=== PATIENT | female | born 1970 | race Caucasian/White ===

== ENCOUNTER 2023-05-18 13:08 | Outpatient (CLI) | payer OTHER, SELFPAY | END 2023-05-18 13:09 | disposition home or self-care (01) | LOC: LKVREF 13:11 | PROVIDERS: PCP Emergency Medicine; Visit Provider Emergency Medicine | DX: Z00.00 Encounter for general adult medical examination without abnormal findings (principal); I10 Essential (primary) hypertension; Z13.1 Encounter for screening for diabetes mellitus | CPT/HCPCS: 80048 ==

== ENCOUNTER 2023-06-08 12:23 | Outpatient (CLI) | payer OTHER, SELFPAY ==
[2023-06-08 13:22] VITALS: BP 164/84; PULSE 113; RESP 18
--- NOTE | 2023-06-08 14:29 | P.STN_ITS ---
Stress Test Note Date Date Seen: 06/08/23 Date of test: 06/08/23 Providers Primary care provider: Kemi Campo Stress test physician: Antonia Orozco Stress Test Note Stress test ordered: Stress Echo Indication for test: Shortness of breath Stress test medicine: None Results discussion: Resting EKG: Sinus rhythm, 86 beats per minute. Resting blood pressure: 130/82 Stress test: Patient exercised on the treadmill following standard Jarad protocol occasional PVC was seen during exercise, no significant burden of PVCs. Patient exercised to 9 minutes 2 seconds, stopping due to achieving heart rate an maximizing exercise capacity. This was equivalent to 10.5 Mets. She had m aximal blood pressure during exercise of 170/74 given the rate pressure product of 30,600. No arrhythmia, no ischemic change noted. Patient experienced no concerning symptoms during the stress test. Echo images to couple this for a full formal diagnostic. Impression: Subjectively negative, objectively negative EKG portion of this stress test. Follow up suggested: Patient will be discharged to home, in stable condition. She will await the full report once the echo images are read. She does have a follow-up next week with her primary care provider.
== END 2023-06-08 12:24 | disposition home or self-care (01) ==
LOC: STRESS 12:24
PROVIDERS: PCP Emergency Medicine; Visit Provider Family Medicine
DX: R06.02 Shortness of breath (principal)
CPT/HCPCS: 93016; 93325; 93351

== ENCOUNTER 2023-06-15 09:50 | Outpatient (CLI) | payer OTHER, SELFPAY | END 2023-06-15 09:51 | disposition home or self-care (01) | PROVIDERS: PCP Emergency Medicine; Visit Provider Emergency Medicine | DX: Z00.00 Encounter for general adult medical examination without abnormal findings (principal); Z13.6 Encounter for screening for cardiovascular disorders; Z13.1 Encounter for screening for diabetes mellitus | CPT/HCPCS: 80061; 82947 ==

== ENCOUNTER 2023-06-22 10:41 | Outpatient (CLI) | payer OTHER, SELFPAY ==
--- NOTE | 2023-06-22 11:00 | CRLHL7_ITS ---
For Patients: As a result of the Century Cures Act, medical imaging exams and procedure reports are released immediately into your electronic medical record. You may view this report before your referring provider. If you have questions, please contact your health care provider. INDICATION: EXCESSIVE AND FREQUENT BLEEDING COMPARISON: none TECHNIQUE: 2D gonzalez scale and color Doppler images were acquired of the pelvis using a transabdominal and transvaginal approach. FINDINGS: Uterine echotexture is heterogeneous. There are 2 midline uterine fibroids which are likely submucosal measuring 2.3 x 1.7 x 2.5 cm and 2.5 x 1.6 x 2.2 cm. An additional anterior fibroid is present measuring 2.2 x 1.8 x 0.4 cm. Uterus measures 12.3 cm in length by 6.4 cm in AP diameter by 8.0 cm in transverse dimension. The endometrial lining is difficult to completely visualize and measures 12 millimeters. The ovaries are not visualized. There are no suspicious fluid collections within the cul-de-sac. IMPRESSION: Uterine fibroids are present including 2 central fibroids which are likely submucosal which measure up to 2.5 cm. Endometrial thickness 12 millimeters. Dictated by Prakash Vang MD @ 06/22/2023 12:28:13 PM (Electronically Signed)
== END 2023-06-22 10:42 | disposition home or self-care (01) ==
LOC: US 10:41
PROVIDERS: PCP Emergency Medicine; Visit Provider Emergency Medicine
DX: N92.0 Excessive and frequent menstruation with regular cycle (principal); D25.0 Submucous leiomyoma of uterus; R93.89 Abnormal findings on diagnostic imaging of other specified body structures
CPT/HCPCS: 76830; 76856

== ENCOUNTER 2023-08-10 13:19 | Outpatient (CLI) | payer OTHER, SELFPAY ==
--- NOTE | 2023-08-10 13:40 | CRLHL7_ITS ---
For Patients: As a result of the Century Cures Act, medical imaging exams and procedure reports are released immediately into your electronic medical record. You may view this report before your referring provider. If you have questions, please contact your health care provider. BILATERAL DIGITAL SCREENING MAMMOGRAM WITH COMPUTER-AIDED DETECTION CLINICAL HISTORY: Routine screening exam. COMPARISON: 08/28/2012, 05/19/2012. TECHNIQUE: Digital mammogram in CC and MLO projections including computer-aided detection (CAD). BREAST COMPOSITION: The breasts are heterogeneously dense, which may obscure small masses. FINDINGS: RIGHT Breast: Asymmetric density with calcifications superior RIGHT breast MLO view only 6 cm from the nipple. LEFT Breast: No suspicious findings. IMPRESSION: RIGHT breast asymmetry/mass. RECOMMENDATIONS: Additional mammographic views of the RIGHT breast including 3D spot compression MLO, 3D true lateral and 3D XCCL. RIGHT breast ultrasound may also be required. BI-RADS Category 0: Incomplete: Need Additional Imaging Evaluation and/or Prior Mammograms for Comparison [facility] will contact the patient for follow-up. A lay language report of this examination will be provided to the patient. Dictated by Prakash Vang MD @ 08/11/2023 1:10:10 PM benjamin/Dictated by: Prakash Vang MD @ 08/11/2023 1:10:00 PM (Electronically Signed)
== END 2023-08-10 13:20 | disposition home or self-care (01) ==
LOC: MAMMO 13:20
PROVIDERS: PCP Emergency Medicine; Visit Provider Emergency Medicine
DX: Z12.31 Encounter for screening mammogram for malignant neoplasm of breast (principal); N63.10 Unspecified lump in the right breast, unspecified quadrant; R92.2 Inconclusive mammogram
CPT/HCPCS: 77067

== ENCOUNTER 2023-08-16 14:10 | Outpatient (CLI) | payer OTHER, SELFPAY | END 2023-08-16 14:11 | disposition home or self-care (01) | LOC: NFLDREF 15:02 | PROVIDERS: PCP Emergency Medicine; Visit Provider Obstetrics & Gynecology | DX: D25.9 Leiomyoma of uterus, unspecified (principal); N92.0 Excessive and frequent menstruation with regular cycle; D68.51 Activated protein C resistance | CPT/HCPCS: 83001; 84439; 84443 ==

== ENCOUNTER 2023-08-17 09:26 | Outpatient (CLI) | payer OTHER, SELFPAY ==
--- NOTE | 2023-08-17 09:45 | CRLHL7_ITS ---
For Patients: As a result of the Cures Act, medical imaging exams and procedure reports are released immediately into your electronic medical record. You may view this report before your referring provider. If you have questions, please contact your health care provider. DIGITAL DIAGNOSTIC RIGHT MAMMOGRAM USING TOMOSYNTHESIS AND COMPUTER-AIDED DETECTION RIGHT BREAST ULTRASOUND CLINICAL HISTORY: RIGHT breast mass/asymmetry. COMPARISON: 08/10/2023, 08/28/2012. TECHNIQUE: Digital RIGHT mammogram in two projections. Tomosynthesis and CAD utilized. Real-time ultrasound imaging of RIGHT breast with imaging documentation. Scanning was performed by both the technologist and the radiologist. BREAST COMPOSITION: The breast is heterogeneously dense, which may obscure small masses. FINDINGS: 3D spot compression MLO and 3D true lateral RIGHT breast mammogram images submitted along with a 3D XCCL RIGHT breast mammogram. There is a solid macro lobular circumscribed mass within the superior RIGHT breast with associated dystrophic calcifications. Lateral chest and anterior to this region are a group of microcalcifications with associated dense ill-defined tissue. No adenopathy. Targeted ultrasound 12 o`clock 7 cm from the nipple performed. In this location there is a solid circumscribed macro lobular hypoechoic mass containing calcifications measuring 1.4 x 1.5 x 1.7 cm. Dense tissue is located anterior and lateral to this mass corresponding to the calcifications. Scar tissue is present at the superolateral aspect of the areola. IMPRESSION: Suspicious mass RIGHT breast 12 o`clock 7 cm from the nipple measuring 1.7 cm. Additional suspicious calcifications adjacent to the mass. RECOMMENDATIONS: Ultrasound-guided core needle biopsy of the mass and of the tissue anterior and lateral to the mass which contains the calcifications. Results and recommendations discussed with the patient. BI-RADS Category 4: Suspicious A lay language report of this examination will be provided to the patient. Dictated by Prakash Vang MD @ 08/17/2023 11:12:51 AM jj/Dictated by: Prakash Vang MD @ 08/17/2023 11:12:00 AM (Electronically Signed)
--- NOTE | 2023-08-17 10:15 | CRLHL7_ITS ---
For Patients: As a result of the Cures Act, medical imaging exams and procedure reports are released immediately into your electronic medical record. You may view this report before your referring provider. If you have questions, please contact your health care provider. PLEASE SEE DIGITAL DIAGNOSTIC RIGHT MAMMOGRAM PERFORMED SAME DAY CRL:[email or web address] alexander/Dictated by: Prakash Vang MD @ 08/17/2023 11:12:00 AM (Electronically Signed)
== END 2023-08-17 09:27 | disposition home or self-care (01) ==
LOC: MAMMO 09:26
PROVIDERS: PCP Emergency Medicine; Visit Provider Emergency Medicine
DX: N63.10 Unspecified lump in the right breast, unspecified quadrant (principal); R92.8 Other abnormal and inconclusive findings on diagnostic imaging of breast
CPT/HCPCS: 76642; 77065; 80048; G0279

== ENCOUNTER 2023-08-23 15:25 | Outpatient (CLI) | payer OTHER, SELFPAY ==
[2023-08-26 00:56] LABS: Bacterial Vaginosis by TMA Negative; Candida glabrata by TMA Negative; Candida species by TMA Negative; Trichomonas vaginalis by TMA Negative
== END 2023-08-23 15:26 | disposition home or self-care (01) ==
LOC: NFLDREF 15:39
PROVIDERS: PCP Emergency Medicine; Visit Provider Obstetrics & Gynecology
DX: N89.8 Other specified noninflammatory disorders of vagina (principal)
CPT/HCPCS: 81513; 87481; 87661

== ENCOUNTER 2023-08-24 08:50 | Outpatient (CLI) | payer OTHER, SELFPAY ==
--- NOTE | 2023-08-24 09:15 | CRLHL7_ITS ---
For Patients: As a result of the Century Cures Act, medical imaging exams and procedure reports are released immediately into your electronic medical record. You may view this report before your referring provider. If you have questions, please contact your health care provider. ADDENDUM: Pathology of this solid nodule demonstrates benign fibroadenoma with associated calcifications. This is concordant. Additional biopsy of the tissues around the solid nodule demonstrate benign PASH. No suspicious findings. No calcifications identified in the tissue surrounding the solid nodule. Six-month follow-up diagnostic RIGHT breast mammogram recommended to follow-up the likely benign calcifications. Dictated by: Prakash Vang MD @08/28/2023 11:13:35 AM / CRL:benjamin ULTRASOUND-GUIDED CORE NEEDLE BREAST BIOPSY OF TWO SITES AND POST-BIOPSY DIGITAL MAMMOGRAM FOR BIOPSY MARKER PLACEMENT CLINICAL HISTORY: SUSPICIOUS SOLID MASS AND ADJACENT microcalcifications. COMPARISON STUDIES: 08/17/2023, 08/10/2023. TECHNIQUE: Real-time ultrasound with image documentation was used for targeting the breast lesions. A core needle biopsy system was used to obtain core tissue samples with a 18-gauge probe. Post-biopsy CC and ML digital mammograms were obtained to document position of the biopsy marker. CONSENT and TIME OUT: The procedure, risks, and alternatives were explained to the patient and a consent was signed. Goodwin Protocol was followed including pre-procedure verification that relevant information/documentation was available, reviewed and properly matched to the patient; consent accurate and complete; and equipment and supplies available. Time Out was conducted just prior to starting procedure to verify the four required elements: patient identity, correct side/site marked (if applicable), procedure, relevant images/results properly labeled and displayed (if applicable). PROCEDURE: All biopsies were performed in a similar manner. The patient was positioned supine on the ultrasound table. The breast was prepped with ChloraPrep. 8 cc of 1 percent lidocaine used for local anesthesia. Core samples were obtained. A sterile metal biopsy clip was placed percutaneously to jayla the lesion position within the breast. The specimens were placed in 10% formalin and sent to the Pathology Department. Pressure was held on the biopsy site until all bleeding subsided. The skin incision was closed with Steri-Strips. An ice pack was positioned over the biopsy site. The patient tolerated the procedure well. Post-biopsy instructions were reviewed with the patient, and a written copy was given to her. SITE A: LATERALITY: RIGHT breast. LESION: Solid micro lobular hypoechoic mass 12 o`clock 7 cm from the nipple measuring 1.4 x 1.5 x 1.7 cm. SUSPICION: High. NUMBER OF SAMPLES: 5 BIOPSY CLIP SHAPE: HydroMARK. PROXIMITY OF CLIP TO TARGET: Within the lesion. SITE B: LATERALITY: RIGHT breast. LESION: Microcalcifications immediately adjacent to the above biopsied lesion. SUSPICION: High. NUMBER OF SAMPLES: 5. BIOPSY CLIP SHAPE: Oval. PROXIMITY OF CLIP TO TARGET: Within the lesion. DISTANCE BETWEEN: Sites A and B: 1 cm. IMPRESSION: Ultrasound-guided breast biopsy of two or more sites. When the pathology report is available, an addendum to this report will be made. ACR not applicable Dictated by Prakash Vang MD @ 08/24/2023 12:16:39 PM/suzette DEBI/Dictated by: Prakash Vang MD @ 08/24/2023 12:16:00 PM (Electronically Signed)
--- NOTE | 2023-08-24 10:00 | CRLHL7_ITS ---
For Patients: As a result of the Century Cures Act, medical imaging exams and procedure reports are released immediately into your electronic medical record. You may view this report before your referring provider. If you have questions, please contact your health care provider. PLEASE SEE RIGHT BREAST ULTRASOUND-GUIDED BIOPSY OF SAME DAY. CRL:suzette DEBI/Dictated by: Prakash Vang MD @ 08/24/2023 12:16:00 PM (Electronically Signed)
== END 2023-08-24 08:51 | disposition home or self-care (01) ==
LOC: US 08:51
PROVIDERS: PCP Emergency Medicine; Visit Provider Emergency Medicine
DX: N63.10 Unspecified lump in the right breast, unspecified quadrant (principal); D24.1 Benign neoplasm of right breast; R92.8 Other abnormal and inconclusive findings on diagnostic imaging of breast
CPT/HCPCS: 19083; 19084; 77065; 88305; A4648; A4649

== ENCOUNTER 2023-09-20 16:04 | Outpatient (CLI) | payer OTHER, SELFPAY | END 2023-09-20 16:05 | disposition home or self-care (01) | LOC: LKVREF 16:05 | PROVIDERS: PCP Emergency Medicine; Visit Provider Emergency Medicine | DX: Z01.818 Encounter for other preprocedural examination (principal) | CPT/HCPCS: 80048 ==

== ENCOUNTER 2023-10-05 06:00 | Day surgery (SDC) | payer OTHER, SELFPAY ==
[2023-10-05 06:14] VITALS: BMI 29.4
[2023-10-05] MEDS: SODIUM CHLORIDE 0.9 % (FLUSH) 10 ML SYRINGE IVF (06:20)
[2023-10-05] MEDS: LACTATED RINGERS 1000 ML 1,000 ML 100 ML IV (06:20)
[2023-10-05 06:33] VITALS: BP 147/73; PULSE 103; RESP 16; TEMP 36.6; O2SAT 97
[2023-10-05 06:53] LABS: Ur HCG Qualitative* Negative (Negative)
--- NOTE | 2023-10-05 07:09 | W.PM.H&PU ---
History & Physical Update History & Physical Update H&P Reviewed and patient assessed: No changes noted H&P Updates: Preoperative diagnosis: Postmenopausal bleeding, suspected submucosal fibroids Planned procedures: Hysteroscopy, possible resection of submucous fibroid, possible polypectomy, dilation and curettage Physical exam: General: No acute distress Psych: Alert and oriented x3, full affect HEENT: Normocephalic, atraumatic Labs: Hemoglobin 14 Urine test negative
[2023-10-05 08:25] VITALS: BP 110/58; PULSE 102; RESP 14; TEMP 36.4; O2SAT 98
--- NOTE | 2023-10-05 08:29 | W.ANESCHARGE ---
Anesthesia Charges Start Date/Time Anesthesia Start Date: 10/05/23 Anesthesia Start Time: 07:17 Stop Date/Time Anesthesia Stop Date: 10/05/23 Anesthesia Stop Time: 08:29
[2023-10-05 08:30] VITALS: BP 94/43; PULSE 95; RESP 14; O2SAT 99
[2023-10-05 08:45] VITALS: BP 114/63; PULSE 85; RESP 14; O2SAT 96
[2023-10-05 09:00] VITALS: BP 129/57; PULSE 80; RESP 16; O2SAT 95
--- NOTE | 2023-10-05 09:01 | P.GYNPRC_ITS ---
Procedure Note Date of procedure: 10/05/23 Pre-op diagnosis: Postmenopausal bleeding, Thickened endometrial stripe, fibroids Post-op diagnosis: other (Endometrial polyps, partially submucosal posterior uterine fibroid, otherwise as above) Procedure: Hysteroscopy, polypectomy, dilation and curettage, partial resection of submucous fibroid Anesthesia: MAC Complications: None Surgeon: Alyssa Cordoba MD Estimated blood loss (mL): 10 IV fluids (mL): 500 Urine Output (mL): 30 Pathology: specimen obtained, sent to pathology (Endometrial curettings, endometrial polyps and submucous fibroid. Intention to send this specimen verbally discussed at postop debrief) Condition: stable Disposition: same day Findings: 1. Upon bimanual exam under anesthesia, uterus was mobile, slightly anteverted, slightly enlarged and slightly bulky. Cervix was normal in appearance. 2. Upon hysteroscopy, survey of the endometrial cavity revealed diffuse thickening of the endometrium with several small endometrial polyps noted near the left cornual region. There was a partially submucous fibroid bulging through the posterior middle eat uterine segment. Procedure Description: Saline deficit: 895 mL; some of which had been lost on the floor leaking around the bag Procedure in detail: Patient was taken to the operating room with IV running. She was positioned in dorsal lithotomy position with her legs fully supported in Yellofin stirrups. Monitored anesthesia care was administered. She was prepped and draped in the usual sterile fashion. Exam under anesthesia was performed for the above-noted findings. Speculum was inserted. Cervix visualized and grasped along the anterior lip with a single-tooth tenaculum. Paracervical block was performed for total 10 mL 1% lidocaine with dilute epinephrine. Cervix was serially dilated to accommodate the TRUCLEAR hysteroscope. This was assembled with saline inflow and outflow in place. The line was flushed of bubbles. The hysteroscope was advanced through the cervix into the endometrial cavity for the above noted findings. The tissue morcellator was then inserted through the operating channel. Window lock was performed. Under direct visualization, the endometrial cavity was circumferentially curetted with the tissue morcellator. The soft tissue blade was then exchanged for the dense tissue mini. This was used to shave down the portion of the submucous fibroid that bulge posteriorly into the endometrial cavity. The hysteroscope and morcellator were then removed from the uterus. Tenaculum was removed from the anterior lip of cervix. Hemostasis was noted. Patient tolerated procedure well. She was taken to recovery area in stable cond ition. Postoperative debrief was performed, reviewing names of procedures, desired specimens, and EBL.
[2023-10-05 09:15] VITALS: BP 137/72; PULSE 73; RESP 16; O2SAT 97
== END 2023-10-05 10:15 | disposition home or self-care (01) ==
PROVIDERS: Anesthesiology; PCP Emergency Medicine; Visit Provider Obstetrics & Gynecology
PROC: 0UDB8ZZ Extraction of Endometrium, Via Natural or Artificial Opening Endoscopic (ICD-10-PCS; CPT 58558; principal; 2023-10-05 07:15)
DX: N95.0 Postmenopausal bleeding (principal); N84.0 Polyp of corpus uteri; D25.0 Submucous leiomyoma of uterus
CPT/HCPCS: 58558; 00952; 36415; 81025; 85018; 86850; 86900; 86901; 88305; J1100; J1885; J2405; J2704; J3010; J7120

== ENCOUNTER 2024-01-24 15:21 | Outpatient (CLI) | payer OTHER, SELFPAY ==
[2024-01-24 15:30] LABS: Clue Cells No Clue Cells Seen (None Seen); Trichomonas No Trichomonas Seen (None Seen); Yeast No Yeast Seen (None Seen)
== END 2024-01-24 15:22 | disposition home or self-care (01) ==
PROVIDERS: PCP Emergency Medicine; Visit Provider Obstetrics & Gynecology
DX: N95.0 Postmenopausal bleeding (principal); N89.8 Other specified noninflammatory disorders of vagina
CPT/HCPCS: 87210